=== PATIENT | male | born 1935 | race Caucasian/White ===

== ENCOUNTER 2018-10-15 11:27 | Inpatient (IN) ==
--- NOTE | 2018-10-15 11:37 | PDOC ---
Fall HPI - General Chief Complaint: Fall Stated Complaint: DYSPNEA, BACK PAIN AFTER FALL Date Seen by Provider: 10/15/18 Time Seen by Provider: 11:32 Source: POSITIVE: Patient, EMS Exam Limitations: POSITIVE: No limitations Nurse's Notes Reviewed & Considered: Yes EMS Report Reviewed & Considered: Verbal - History of Present Illness Initial Comments: This is a well-developed, well-nourished, very pleasant, 83-year-old male, complaining of back pain and shortness of breath with cough. Patient states he hadn't been feeling well for a couple of days and tripped over some close at home 2 days ago and fell landing on his back on a dresser. Now he has back pain in addition to shortness of breath and cough. He denies any headache, no sore throat, he does have a runny nose, denies any chest pain, he has a cough with shortness of breath, denies any nausea vomiting or diarrhea, no hematuria or dysuria, no rashes. EMS found his oxygenation to be 92% on room air but because of his shortness of breath he was placed on 3 L nasal cannula and his oxygen saturation improved to 97%. By the time he was here in the emergency department his oxygen saturation on 3 L had decreased to 92%. Patient states that once he is able to get up he is able to ambulate without difficulty. Assist that he has some pain in his back upon trying to arise from a sitting position that resolved fairly rapidly. Have you received a tetanus shot in the past 10 years?: Unknown Body Location Affected: REPORTS: Chest, Back Timing: REPORTS: Abrupt Duration: >24 hours Severity: Moderate Context of Fall: REPORTS: Tripped Location of Fall: REPORTS: Home Quality: REPORTS: "Pain" Associated Symptoms: REPORTS: Trouble Breathing Location of Injuries / Pain: REPORTS: Lower Back Any Prior Injuries Related to Current Complaint?: No - Patient Home Medications Home Medications: Home Medications Albuterol Sulfate [Proventil Hfa] 1 puff INH Q4-6H puff 03/14/15 Allopurinol 1 tab PO DAILY tab 03/14/15 Finasteride 1 mg PO DAILY tab 03/14/15 Tamsulosin HCl 1 cap PO DAILY cap 03/14/15 Tiotropium [place] [Spiriva] 1 puff INH DAILY inh 03/14/15 - Patient Allergies Allergies/Adverse Reactions: Allergies Allergy/AdvReac Type Severity Reaction Status Date / Time No Known Allergies Allergy Verified 10/15/18 11:33 ROS - Limitations ROS Limitations: No Limitations Constitution: REPORTS: Denies Symptoms Cardiovascular: REPORTS: Denies Cardiac Symptoms Respiratory: REPORTS: Cough Non Productive, Shortness Of Breath Neurological: REPORTS: Denies Neuro Symptoms Gastrointestinal: REPORTS: Denies GI Symptoms Endocrine: REPORTS: Denies Symptoms Musculoskeletal: REPORTS: Back Pain Genitourinary: REPORTS: Denies Symptoms Eyes: REPORTS: Denies Symptoms ENT: REPORTS: Nasal Drainage Skin: REPORTS: Denies Skin Symptoms Lympathic: REPORTS: Denies Lympathic Symptoms Immunologic: POSITIVE: Denies Symptoms Psychiatric: POSITIVE: Denies Psych Symptoms Fall Physical Exam - General Appearance General Appearance: POSITIVE: Alert, Cooperative, No Acute Distress, No Evidence of Trauma - HEENT HEENT: POSITIVE: Head Inspection Nml, Eyes Inspection Nml, Ears Inspection Nml, Nose Inspection Nml, Oral/Dental Inspect. Nml, Pharynx Inspect. Nml, PERRL, EOMI - Pupil Size Pupil Size: 5 mm: Bilateral - Neck Neck: POSITIVE: Non Tender, Painless ROM, Trachea Midline, Nexus Criteria Negative - Respiratory / CVS Respiratory / CVS: POSITIVE: Chest Non Tender, No Ecchymosis, Breath Sounds Normal, No Respiratory Distress, Heart Sounds Normal, Regular Rate/Rhythm Peripheral Pulses: Radial (R): 4+ - Abdomen Abdomen: Soft: (All Quadrants), Normal Bowel Sounds: (All Quadrants), Denies Tenderness: (All Quadrants), No Splenomegaly: (All Quadrants), No Hepatomegaly: (All Quadrants), No Guarding: (All Quadrants), No Rebound: (All Quadrants), No Palpable Pulse: (All Quadrants), No Palpabale Mass: (All Quadrants), No Distention: (All Quadrants), No Rigidity: (All Quadrants) - Neuro / Psych Neuro / Psych: POSITIVE: Oriented X3, Motor Normal, Sensation Normal, Mood Appropriate, Affect Appropriate Reflexes: Patellar (R): 4+, Patellar (L): 4+ - Skin Skin: POSITIVE: Intact, Warm, Dry - Back Back: POSITIVE: Normal Inspection, No CVA Tenderness, No Vertebral Tenderness, Muscle Spasm (Paraspinal muscles of the lower back predominantly on the left) - Extremities Extremity Assessment: Non-Tender: (ALL), Normal ROM: (ALL), No Edema: (ALL), Normal Inspection: (ALL), No Swelling: (ALL), Pelvis Stable: (ALL) Joint Exam: POSITIVE: Joints Normal, Normal ROM, Normal Gait, Normal Weight Bearing Fall Progress - Results Reviewed by me Xrays/CTs/US Reviewed by me: Yes Discussed with Radiologist: Yes Lab Results Reviewed by Me: Yes CBC and BMP: 10/15/18 12:08 10/15/18 12:08 Lab Results:: Laboratory Results 10/15/18 10/15/18 10/15/18 12:02 12:08 12:08 WBC 14.60 H RBC 4.03 L Hgb 11.9 L Hct 36.7 L MCV 91.1 H MCH 29.5 MCHC 32.4 L RDW Std Deviation 57.5 H RDW Coeff of [place] 17.9 H Plt Count 871 H MPV 10.0 Neutrophils % (Manual) 75 Band Neutrophils % 0 Lymphocytes % (Manual) 18 Monocytes % (Manual) 6 Eosinophils % (Manual) 1 Basophils % (Manual) 0 Metamyelocytes % Not Reportable Myelocytes % Not Reportable Promyelocytes % Not Reportable Blast Cells Not Reportable WBC Morphology Comment Normal morphology Plt Morphology Comment See comments RBC Morph Comment See comments ESR 95 H VBG pH 7.41 VBG pCO2 37 L VBG HCO3 24 VBG Base Excess -1 Sodium 141 Potassium 4.5 Chloride 106 Carbon Dioxide 28 Anion Gap 7 BUN 29 H Creatinine 1.2 BUN/Creatinine Ratio 24.16 H Glucose 110 Calculated Osmolality 298.0 H Lactic Acid Calcium 9.6 Magnesium 2.4 Total Bilirubin 0.3 AST 87 H ALT 82 H Alkaline Phosphatase 111 CK-MB (CK-2) Troponin I Handheld C-Reactive Protein 7.8 H NT-Pro-B Natriuret Pep 974 H Total Protein 7.6 Albumin 3.5 Globulin 4.0 Albumin/Globulin Ratio 0.80 L 10/15/18 10/15/18 10/15/18 12:08 12:08 12:08 WBC RBC Hgb Hct MCV MCH MCHC RDW Std Deviation RDW Coeff of [place] Plt Count MPV Neutrophils % (Manual) Band Neutrophils % Lymphocytes % (Manual) Monocytes % (Manual) Eosinophils % (Manual) Basophils % (Manual) Metamyelocytes % Myelocytes % Promyelocytes % Blast Cells WBC Morphology Comment Plt Morphology Comment RBC Morph Comment ESR VBG pH VBG pCO2 VBG HCO3 VBG Base Excess Sodium Potassium Chloride Carbon Dioxide Anion Gap BUN Creatinine BUN/Creatinine Ratio Glucose Calculated Osmolality Lactic Acid 1.1 Calcium Magnesium Total Bilirubin AST ALT Alkaline Phosphatase CK-MB (CK-2) 0.91 Troponin I Handheld 0.010 C-Reactive Protein NT-Pro-B Natriuret Pep Total Protein Albumin Globulin Albumin/Globulin Ratio EKG Interpreted/Reviewed By Me:: Yes (sinus rhythm with sinus arrhythmia, 88 bpm, no ST changes.) EKG Interpretation:: POSITIVE: Normal Sinus Rhythm, Normal Rate, Normal Intervals, Normal [place], Normal QRS, Normal ST/T - Patient's Progress Re-Examine Time:: 14:47 Status: POSITIVE: Improved MDM / ED Course: Patient was evaluated, an IV started, blood drawn and sent to the lab for studies, chest x-ray, lumbar spine x-ray, and chest CT were obtained. Findings: CBC shows white count of 14.6, anemia with hemoglobin 11.9, hematocrit of 36.7, platelets of 871, 0% bands. CK-MB is 0.91, troponin is 0.010. CRP is 7.8 and ESR is 95. BNP is 974. Blood gases show pH of 7.41, PCO2 37, bicarbonate 24, base excess of -1. CMP shows BUN of 29, AST of 87, ALT of 82. Magnesium is 2.4. Lactic acid is 1.1. Bilateral thigh respiratory panel is negative for all pathogens tested. Chest x-ray shows bilateral aspiration pneumonia more severe on the left side than the right. Lumbar spine x-ray shows no acute fractures or dislocation and there is chronic disc space narrowing at every level except L3-L4 he has a grade 1 spondylolisthesis at L4-L5 with a left L4 pars defect. Assessment: #1 Aspiration pneumonia with hypoxia requiring oxygen. #2 back pain with severe arthritic changes. Plan: Admission. IV Rocephin and clindamycin. Blood cultures are pending. - Consult Consult (If Yes, Name of Consulting MD & Time Called): Yes (Dr. Barclay, 1450 hrs.) Counseled: POSITIVE: Patient, Family, RE: Lab Results, RE: Radiology Results, RE: DX, RE: Need for F/U Patient Care Time - Estimated PCT Patient Care Time (In Minutes): 45 Vital Signs - Recent Vital Signs Vital Signs: Vital Signs (Last 8 hours) Temp Pulse Pulse Resp BP Pulse Ox 10/15/18 12:02 85 16 99 10/15/18 12:01 84 18 92 10/15/18 11:27 97.2 F 88 20 156/92 92 - VS Reviewed Vital Signs Reviewed: Yes Discharge Clinical Impression: Aspiration pneumonia Discharge Disposition: Admit to Inpatient Condition: Stable Follow Up With: Tanner Fuentes [Primary Care Provider] - Date Decision to Admit to Inpatient: 10/15/18 Time Decision to Admit to Inpatient: 14:50
[2018-10-15] MEDS ORDERED: Sodium Chloride 0.9% 1,000 ML PRIMARY IV ONE (11:41)
[2018-10-15] MEDS ORDERED: DEXAMETHASONE PF 10 MG/1 ML VIAL IVP ONE (11:41)
[2018-10-15] MEDS ORDERED: ONDANSETRON 4 MG/2 ML VIAL IVP ONE (11:41)
[2018-10-15] MEDS ORDERED: IPRATROPIUM/ALBUTEROL SULFATE 3 ML NEB NEB ONE (11:41)
[2018-10-15] MEDS ORDERED: KETOROLAC 15 MG/1 ML VIAL IVP ONE (11:41)
--- NOTE | 2018-10-15 12:00 | EKG ---
[address] [address] Measurements Intervals [place] Rate: 88 P: 46 [place]: 152 QRS: 82 QRSD: 104 T: 72 QT: 331 QTc: 376 Interpretive Statements SINUS RHYTHM WITH SINUS ARRHYTHMIA Compared to ECG 04/11/2015 14:51:35 T-wave abnormality no longer present Electronically Signed On 10-15-18 16:20:54 MDT by Alec Yao [email or web address]
[2018-10-15 12:10] LABS: Hematocrit [HCT] 36.7 % (42.0-52.0); Hemoglobin [HGB] 11.9 g/dL (14.0-18.0); MEAN CORPUSCULAR HEMOGLOBIN 29.5 PG (27-31); MEAN CORPUSCULAR HGB CONC 32.4 g/dL (33-37); MEAN CORPUSCULAR VOLUME 91.1 FL (80-90); RED BLOOD COUNT 4.03 10^6/uL (4.70-6.10)
[2018-10-15 12:22] LABS: VENOUS PH 7.41 (7.32-7.42)
[2018-10-15 12:23] LABS: BLOOD UREA NITROGEN 29 mg/dL (7-22); BUN/CREATININE RATIO 24.16 (6-20); SERUM ALBUMIN 3.5 g/dL (3.5-4.8)
[2018-10-15 12:30] LABS: WBC MORPHOLOGY COMMENT NORMAL MORPHOLOGY (NORM)
[2018-10-15 12:31] LABS: BAND NEUTROPHILS % 0 % (0-10); BASOPHILS % (MANUAL) 0 % (0-1); EOSINOPHILS % (MANUAL) 1 % (0-8); MONOCYTES % (MANUAL) 6 % (0-12); NEUTROPHILS % (MANUAL) 75 % (50-80); PLATELET MORPHOLOGY COMMENT SEE COMMENTS (NORM); RBC MORPHOLOGY COMMENT SEE COMMENTS (NORM)
[2018-10-15 13:18] LABS: Erythrocyte Sediment Rate 95 MM/HR (0-15)
--- NOTE | 2018-10-15 14:44 | DI ---
PA /LATERAL CHEST, 10/15/2018 11:41 AM : Clinical History: Cough. Shortness of breath. Previous Exam: 03/09/2015. Soft Tissues: No acute soft tissue abnormality. Bones: Normal. Heart: Normal heart. Lungs: The patient has had a previous left lung biopsy. There are bilateral lower lobe infiltrates in a pattern indicative of aspiration pneumonia. It is more pronounced on the left side than the right and this was also evident on the prior exam. There is centrilobular emphysema. Effusion(s): None. Mediastinum: Pulmonary arterial hypertension. Nodules: No pulmonary nodules. Readin. Bilateral lower lobe aspiration pneumonia. The left side is more involved than the right. 2. Centrilobular emphysema with pulmonary arterial hypertension.
[2018-10-15] MEDS ORDERED: cefTRIAXone Inj 2 GM in Sodium Chloride 0.9% 100 ML IV ONE (14:45)
[2018-10-15] MEDS ORDERED: Clindamycin 900mg (Premix) 900 MG/50 ML BAG IV ONE (14:45)
--- NOTE | 2018-10-15 14:49 | DI ---
LUMBAR SPINE SERIES, 10/15/2018 11:41 AM: Clinical History: Pain. Status post fall. Previous Exam: None at this facility. Views: 5 routine views. Vertebral Bodies: Normal height and size. No compression fractures. Disc Spaces: Severe disc space narrowing at every level except L3-4. Alignment: Grade 1 spondylolisthesis at L4-5 with a left L4 pars defect. Pedicles: Normal. Apophyseal Joints: Arthritic changes are present in the apophyseal joints bilaterally from L1-2 throu gh L5-S1 but most severely between L3-4 and L5-S1. SI Joints: Normal. Bone Density: Osteoporotic. Additional Findings: Bilateral lower lobe aspiration pneumonia is evident, more prominent on the left side than the right. Readin. No acute fracture or dislocation. 2. Chronic disc space narrowing at every level except L3-4. Grade 1 spondylolisthesis at L4-5 with a left L4 pars defect. 3. Severe arthritic changes in the apophyseal joints bilaterally especially between L3-4 and L5-S1. 4. Bilateral aspiration pneumonia, more severe on the left side than the right.
[2018-10-15] MEDS ORDERED: ONDANSETRON 4 MG/2 ML VIAL IVP PRN (15:53)
[2018-10-15] MEDS ORDERED: LIDOCAINE W/ SODIUM BICARB 0.5 ML SYR SUBD PRN (15:53)
--- NOTE | 2018-10-15 16:31 | DI ---
CT ANGIOGRAM OF THE CHEST, 10/15/2018 1:52 PM : Clinical History: Shortness of breath. Previous Exam: None at this facility. Technique: Scans from base of neck to lung bases with IV contrast. Bolus tracking protocol was used f or timing the injection. Non-MIPS and MIPS sagittal/coronal images generated. IV Contrast: 65 mL of Isovue 300. Base of Neck: Normal. The left thyroid lobe is either very small or surgically absent. Nodes: Normal axillary, supraclavicular, mediastinal, and hilar lymph nodes. Heart: Normal. No coronary artery calcifications. Aorta: Normal thoracic aorta. No aneurysm or dissection. Pulmonary Arteries: Normal. No pulmonary emboli or infarcts; mild pulmonary hypertension. Lungs: Bilateral lower lobe infiltrates with bronchiectasis. This indicates this is chronic aspiratio n pneumonia. Small blebs are scattered throughout both lungs indicating bullous emphysema. Mild incre ased Jana A and Jana B lines indicating mild chronic interstitial pulmonary fibrosis. Calcified p laques along the left costophrenic angle laterally probably related to the previous lung biopsy. Effusion(s): None. Nodules: There is a 3 mm noncalcified nodule in the anterior segment of the right upper lobe. 3 mm ca lcified nodule in the left upper lobe. Bony Structures: Normal visualized portions of ribs, sternum, scapulae, clavicles, and shoulders. Nor mal visualized portions of thoracic spine. Limited Upper Abdomen: Normal adrenal glands and limited views of the spleen spleen. Normal limited v iews of liver and pancreas. READIN. Normal CTA of the chest. There are no pulmonary emboli or pulmonary infarcts. There is mild pulmo nary adrenal hypertension. 2. Bilateral lower lobe aspiration pneumonia with extensive bronchiectasis. 3. Centrilobular emphysema with bullae and mild chronic interstitial pulmonary fibrosis. 4. Noncalcified 3 mm nodule in the anterior segment of the right upper lobe. Based on the 2017 Fleis chner Society guidelines for incidental nodules noted at CT scanning, a followup CT chest scan withou t IV contrast is(s) and 12 months.
--- NOTE | 2018-10-15 17:10 | HOSP.PSI ---
Pneumonia Severity Index - PSI Age: 83 Sex: Male Half-Way Resident: No History of Neoplastic Disease: No History of Liver Disease: No History of Congestive Heart Failure: No History of Cerebrovascular Disease: No History of Renal Disease: No Altered Mental Status: No Respiratory Rate Greater Than 30: No Systolic Blood Pressure Less Than 90 mmHg: No Temperature Less Than 95F or Greater Than 103.8F: No Pulse Greater Than 124 bpm: No pH Less Than 7.35: No BUN Greater Than 29: Yes Sodium Less Than 130: No Glucose Greater Than 249: No Hematocrit Less Than 30%: No Partial Pressure of Oxygen Less Than 60 mmHg: No Pleural Effusion on Xray: No (class IV pneumonia, admitted for antibiotics, oxygen, breathing therapies) Total PSI Score: 103 PSI Risk: Moderate Risk (91-131) = Consider Inpatient Admission
--- NOTE | 2018-10-15 17:16 | PDOC ---
HPI - History of Present Illness Date of Service: 10/15/18 Time of Service: 17:11 Chief Complaint: Cough and fall History of Present Illness: This very pleasant 83-year-old male with COPD/emphysema without oxygen at home, benign prostatic hypertrophy, who comes in accompanied by his 2 granddaughters with complaints of a fall and cough. The patient apparently normally coughs but his cough is been much more persistent. The patient tells me he felt that he probably had the flu earlier this month but his symptoms seemed to progress and he said thick, green yellowish sputum. His granddaughter tells me his fever was as high as 102 at home. He's been fighting symptoms for the past 8-9 days. Today, he was walking in his house and tried to step over a laundry basket but stepped in it and fell and hurt his lower back. His granddaughter called the ambulance and was brought in for evaluation. He was having low back pain which she does not normally complain of. A lumbar series showed some arthritic changes but was also noted that the patient had bilateral lower lobe pneumonia as he was hypoxic. He was placed on Rocephin and clindamycin with healing that he had an aspiration pneumonia. He states he had influenza vaccine this year and he has had Pneumovax as well. He seemed to get ill after his influenza vaccine per his history. He's never had pneumonia before. He is requiring 3 L of oxygen. He does not know if anything in the emergency room helped him feel any better. No interventions were tried prior to coming into the hospital today. He denies any nausea or vomiting, coughing or choking with eating. Past Medical History Medical History: 1. 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 2. Benign prostatic hypertrophy. 3. Gouty arthropathy Surgical History: No prior surgeries Pertinent Family History: He states that his father of old age. His mother of emphysema Past Social History: Remote history of smoking. Does not drink alcohol. Raised his 2 granddaughters. Has 1 son that described as healthy. Is . Tobacco Use: Former Smoker In the Past 12 Months, Have Used or Abuse Any of the Following Substance: None Alcohol Use: None Medication / Allergies Home Medications: Home Medications Medication Instructions Recorded Confirmed Type Albuterol Sulfate [Proventil Hfa] 1 puff INH Q4-6H puff 03/14/15 10/15/18 History Allopurinol 1 tab PO DAILY tab 03/14/15 10/15/18 History Finasteride 5 mg PO DAILY tab 03/14/15 10/15/18 History Tamsulosin HCl 1 cap PO DAILY cap 03/14/15 10/15/18 History Tiotropium [place] [Spiriva] 1 puff INH DAILY inh 03/14/15 10/15/18 History Allergies/Adverse Reactions: Allergies Allergy/AdvReac Type Severity Reaction Status Date / Time No Known Allergies Allergy Verified 10/15/18 11:33 Review of Systems - Review of Systems All Systems: Reviewed & No Additional Complaints Except as Stated (I did a 12 point review systems and it was negative other than that discussed below and in the history of present illness.) Exam - Vitals Vital Signs: Vital Signs Temperature 97.6 F Temperature Source Temporal Artery Scan Pulse Rate [Pulse Oximeter 82 Right] Pulse Rate 85 Respiratory Rate 20 Blood Pressure [Left Arm] 126/70 Pulse Ox 93 Oxygen Flow Rate 3 Oxygen Delivery Method Nasal Cannula Height 5 ft 11 in Weight 167 lb 8 oz - General General Appearance: No Acute Distress, Cooperative - Head Head Exam: Normal Inspection, Normocephalic, Atraumatic - Eye Eye Exam: POSITIVE: No Scleral Icterus - ENT ENT Exam: POSITIVE: Mucous Membranes Moist - Neck Neck Exam: Normal Inspection, No Tenderness, No Lymphadenopathy, No Thyromegaly, JVP is not Raised - Respiratory Respiratory Exam: POSITIVE: Breathing Non Labored, Decreased Breath Sounds (Bilateral bases), Coarse Breath Sounds - Cardiovascular Cardiovascular Exam: POSITIVE: RRR, No Murmur, No Clicks, No Gallops, No Rubs, No JVD - GI/Abdominal GI/Abdominal Exam: POSITIVE: Normal Bowel Sounds, Non Tender, Non Distended, Soft - Rectal Rectal Exam: POSITIVE: Deferred - External Exam: POSITIVE: Deferred Exam: POSITIVE: Deferred - Extremities Extremities Exam: POSITIVE: No Clubbing Present, No Edema Present, No Cyanosis Present - Back Back Exam: POSITIVE: No CVA Tenderness - Neurological Neurological Exam: POSITIVE: Alert, Oriented x 3, No Facial Droop, Speech Intact / Clear, Moves All Extremities Equally - Psychiatric Psychiatric Exam: POSITIVE: Normal Affect, Normal Mood Results - Labs CBC and BMP: 10/15/18 12:08 10/15/18 12:08 Additional Lab Results: Laboratory Results 10/15/18 10/15/18 10/15/18 12:02 12:08 12:08 WBC 14.60 H RBC 4.03 L Hgb 11.9 L Hct 36.7 L MCV 91.1 H MCH 29.5 MCHC 32.4 L RDW Std Deviation 57.5 H RDW Coeff of [place] 17.9 H Plt Count 871 H MPV 10.0 Neutrophils % (Manual) 75 Band Neutrophils % 0 Lymphocytes % (Manual) 18 Monocytes % (Manual) 6 Eosinophils % (Manual) 1 Basophils % (Manual) 0 Metamyelocytes % Not Reportable Myelocytes % Not Reportable Promyelocytes % Not Reportable Blast Cells Not Reportable WBC Morphology Comment Normal morphology Plt Morphology Comment See comments RBC Morph Comment See comments ESR 95 H VBG pH 7.41 VBG pCO2 37 L VBG HCO3 24 VBG Base Excess -1 Sodium 141 Potassium 4.5 Chloride 106 Carbon Dioxide 28 Anion Gap 7 BUN 29 H Creatinine 1.2 BUN/Creatinine Ratio 24.16 H Glucose 110 Calculated Osmolality 298.0 H Lactic Acid Calcium 9.6 Magnesium 2.4 Total Bilirubin 0.3 AST 87 H ALT 82 H Alkaline Phosphatase 111 CK-MB (CK-2) Troponin I Handheld C-Reactive Protein 7.8 H NT-Pro-B Natriuret Pep 974 H Total Protein 7.6 Albumin 3.5 Globulin 4.0 Albumin/Globulin Ratio 0.80 L 10/15/18 10/15/18 10/15/18 12:08 12:08 12:08 WBC RBC Hgb Hct MCV MCH MCHC RDW Std Deviation RDW Coeff of [place] Plt Count MPV Neutrophils % (Manual) Band Neutrophils % Lymphocytes % (Manual) Monocytes % (Manual) Eosinophils % (Manual) Basophils % (Manual) Metamyelocytes % Myelocytes % Promyelocytes % Blast Cells WBC Morphology Comment Plt Morphology Comment RBC Morph Comment ESR VBG pH VBG pCO2 VBG HCO3 VBG Base Excess Sodium Potassium Chloride Carbon Dioxide Anion Gap BUN Creatinine BUN/Creatinine Ratio Glucose Calculated Osmolality Lactic Acid 1.1 Calcium Magnesium Total Bilirubin AST ALT Alkaline Phosphatase CK-MB (CK-2) 0.91 Troponin I Handheld 0.010 C-Reactive Protein NT-Pro-B Natriuret Pep Total Protein Albumin Globulin Albumin/Globulin Ratio - EKG Data -: EKG Interpreted by Wa Rate: Normal EKG Shows Normal: Sinus Rhythm (Sinus arrhythmia) - Imaging Status: Image Reviewed by Me (Chest x-ray significant for bilateral pneumonia on my view. CT scan shows bilateral infiltrates in the lower lobes. L-spine series shows arthritic changes and degenerative changes in the lumbar spine) Assessment and Plan - Patient Problems (1) Aspiration pneumonia Current Visit: Yes Status: Acute Code(s): J69.0 - Pneumonitis due to inhalation of food and vomit Qualifiers: Aspiration pneumonia type: unspecified Laterality: bilateral Lung location: lower lobe of lung Qualified Code(s): J69.0 - Pneumonitis due to inhalation of food and vomit (2) Acute hypoxemic respiratory failure Current Visit: Yes Status: Acute Code(s): J96.01 - Acute respiratory failure with hypoxia (3) COPD (chronic obstructive pulmonary disease) Current Visit: Yes Status: Acute Code(s): J44.9 - Chronic obstructive pulmonary disease, unspecified Qualifiers: COPD type: emphysema Emphysema type: centrilobular Qualified Code(s): J43.2 - Centrilobular emphysema (4) Low back pain Current Visit: Yes Status: Acute Code(s): M54.5 - Low back pain Qualifiers: Chronicity: acute Back pain laterality: bilateral Sciatica presence: without sciatica Qualified Code(s): M54.5 - Low back pain (5) Benign prostatic hyperplasia Current Visit: Yes Status: Acute Code(s): N40.0 - Benign prostatic hyperplasia without lower urinary tract symptoms Qualifiers: Lower urinary tract symptom presence: unspecified whether lower urinary tract symptoms present Qualified Code(s): N40.0 - Benign prostatic hyperplasia without lower urinary tract symptoms (6) Gouty arthropathy Current Visit: Yes Status: Acute Code(s): M10.9 - Gout, unspecified (7) Thrombocytosis Current Visit: Yes Status: Acute Code(s): 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 Antibiotics will be given IV Rocephin and clindamycin for possible aspiration pneumonia I will write for some breathing therapies including nebulized therapies if necessary. We'll predominantly do this with albuterol. He is on Spiriva and I will continue that. Oxygen as necessary to keep saturations greater than 91%. Respiratory therapy to evaluate. I have written for Vapotherm if necessary Vitamin C by mouth. We'll check a urinary antigen for strep pneumoniae. I will also get a pneumonia sputum profile vaccine status reviewed has had both vaccines and has had Pneumovax before PSI score is suggestive of a class for pneumonia CURB-65 is 2 points, 6.8% 30 day mortality, admitted as inpatient Does not smoke so smoking cessation is not necessary Repeat labs in a.m. CODE STATUS discussed, DO NOT RESUSCITATE Blood cultures are pending. Continue home medications for BPH and gouty arthropathy prevention Try heating packs for the back. Avoid narcotics if at all possible course of antibiotics will be 5 to 7 days, and will switch to oral antibiotics within 48 hours if clinical picuture stabilizes. I'm going to hold off on any steroids at this time Plan above discussed with patient and patient agreed
[2018-10-15] MEDS: ALBUTEROL SULFATE 2.5 MG/3 ML NEB PRN (19:57)
[2018-10-15] MEDS: TAMSULOSIN 0.4 MG CAPSULE PO SCH (21:00)
[2018-10-16] MEDS: ALBUTEROL SULFATE 2.5 MG/3 ML NEB PRN ×4 (00:59→15:03)
[2018-10-16 05:38] LABS: Hemoglobin [HGB] 10.5 g/dL (14.0-18.0); MEAN CORPUSCULAR HEMOGLOBIN 29.2 PG (27-31); MEAN CORPUSCULAR HGB CONC 31.8 g/dL (33-37); MEAN CORPUSCULAR VOLUME 91.9 FL (80-90); MEAN PLATELET VOLUME 10.3 FL (7.4-12.2); RED BLOOD COUNT 3.59 10^6/uL (4.70-6.10)
[2018-10-16 05:58] LABS: BLOOD UREA NITROGEN 33 mg/dL (7-22)
[2018-10-16 06:21] LABS: BAND NEUTROPHILS % 1 % (0-10); BASOPHILS % (MANUAL) 0 % (0-1); EOSINOPHILS % (MANUAL) 0 % (0-8); METAMYELOCYTES % 0 %; MONOCYTES % (MANUAL) 7 % (0-12); MYELOCYTES % 0 %; NEUTROPHILS % (MANUAL) 77 % (50-80); PLATELET MORPHOLOGY COMMENT NORMAL MORPHOLOGY (NORM); PROMYELOCYTES % 0 %; RBC MORPHOLOGY COMMENT NORMAL MORPHOLOGY (NORM); WBC MORPHOLOGY COMMENT NORMAL MORPHOLOGY (NORM)
[2018-10-16] MEDS: TIOTROPIUM BROMIDE 18 MCG CAPSULE INH SCH (06:50)
[2018-10-16] MEDS: ASCORBIC ACID Chewable 500 MG TABLET PO SCH (09:37)
[2018-10-16] MEDS: ENOXAPARIN SODIUM 30 MG/0.3 ML SYRINGE SUBCUT SCH (09:37)
[2018-10-16] MEDS: ALLOPURINOL 300 MG TABLET PO SCH (09:37)
[2018-10-16] MEDS ORDERED: FUROSEMIDE 10 MG/1 ML - 2 ML VIAL IVP ONE (09:39)
[2018-10-16] MEDS ORDERED: GUAIFENESIN 600 MG TABLET PO ONE (10:58)
[2018-10-16] MEDS ORDERED: KETOROLAC 15 MG/1 ML VIAL IVP ONE (10:58)
[2018-10-16] MEDS: Clindamycin 900mg (Premix) 900 MG/50 ML BAG IV SCH ×2 (15:08→23:16)
[2018-10-16] MEDS: cefTRIAXone Inj 2 GM in Sodium Chloride 0.9% 100 ML IV SCH (15:08)
--- NOTE | 2018-10-16 15:55 | DI ---
MODIFIED ESOPHAGRAM, 10/16/2018 8:00 AM : Clinical History: Aspiration pneumonia. Previous Exam: None at this facility. Time Out: A "time out" session was performed to verify the patient's name and date of prior to performing this procedure. Technique: Examination is performed in conjunction with Occupational Therapy to evaluate the patient' s swallowing function. Different texture grades of barium impregnated substances were offered to the patient, ranging from thin liquids to thick liquids to solids. Please see the occupational therapist' s report for more specific details. Deglutition: Deglutition is normal and the esophagus strips well in the upright position. With the pa tient supine, there is almost no motility in the esophagus. Even with the patient attempting to swall ow, the barium remains in the esophagus. Aspiration: No aspiration noted while swallowing. Pooling: No pooling of material in the pyriform sinuses. Diverticulum: There is no Zenker's diverticulum. Esophagus: Spot films of the esophagus showed tertiary contractions without evidence of esophagitis. A small hiatal hernia is present. Reflux: No reflux is demonstrated either spontaneously or with the water siphon test. READIN. The modified esophagram shows no evidence of aspiration or reflux. Using different textures of ba rium impregnated materials elicited no aspiration. However, with the patient supine, there was almost no esophageal motility even when the patient attempted to swallow. 2. Bilateral lower lobe infiltrates are present, more severe on the left side than the right, indica tive of aspiration pneumonia.
[2018-10-16 17:08] LABS: BLOOD UREA NITROGEN 35 mg/dL (7-22)
--- NOTE | 2018-10-16 18:01 | PDOC(PROG) ---
Date of Service: 10/16/18 Time of Service: 17:57 Interval History: patient seen, evaluated earlier today still coughing and has back pain no nausea or vomiting no chest pain Objective : Data - Labs CBC and BMP: 10/16/18 05:15 10/16/18 16:54 Objective : Exam - General General Appearance: No Acute Distress, Cooperative Additional General Exam Details: Vital Signs - Last Taken Temperature 97.6 F 10/16/18 16:26 Pulse Rate 85 10/16/18 16:26 Respiratory Rate 20 10/16/18 16:26 Blood Pressure 112/48 10/16/18 16:26 Pulse Ox 92 10/16/18 16:26 - Eye Eye Exam: No Scleral Icterus - ENT ENT Exam: Mucous Membranes Moist - Neck Neck Exam: JVP is not Raised - Respiratory Respiratory Exam: Breathing Non Labored, Decreased Breath Sounds, Coarse Breath Sounds - Cardiovascular Cardiovascular Exam: RRR, No Murmur, No Clicks, No Gallops, No Rubs, No JVD - GI/Abdominal GI/Abdominal Exam: Normal Bowel Sounds, Non Tender, Non Distended, Soft - Extremities Extremities Exam: No Clubbing Present, No Edema Present, No Cyanosis Present - Neurological Neurological Exam: Alert, Oriented x 3, No Facial Droop, Speech Intact / Clear, Moves All Extremities Equally Assessment and Plan - Patient Problems (1) Aspiration pneumonia Current Visit: Yes Status: Acute Code(s): J69.0 - Pneumonitis due to inhalation of food and vomit Qualifiers: Aspiration pneumonia type: unspecified Laterality: bilateral Lung location: lower lobe of lung Qualified Code(s): J69.0 - Pneumonitis due to inhalation of food and vomit (2) Acute hypoxemic respiratory failure Current Visit: Yes Status: Acute Code(s): J96.01 - Acute respiratory failure with hypoxia (3) COPD (chronic obstructive pulmonary disease) Current Visit: Yes Status: Acute Code(s): J44.9 - Chronic obstructive pulmonary disease, unspecified Qualifiers: COPD type: emphysema Emphysema type: centrilobular Qualified Code(s): J43.2 - Centrilobular emphysema (4) Low back pain Current Visit: Yes Status: Acute Code(s): M54.5 - Low back pain Qualifiers: Chronicity: acute Back pain laterality: bilateral Sciatica presence: without sciatica Qualified Code(s): M54.5 - Low back pain (5) Benign prostatic hyperplasia Current Visit: Yes Status: Acute Code(s): N40.0 - Benign prostatic hyperplasia without lower urinary tract symptoms Qualifiers: Lower urinary tract symptom presence: unspecified whether lower urinary tract symptoms present Qualified Code(s): N40.0 - Benign prostatic hyperplasia without lower urinary tract symptoms (6) Gouty arthropathy Current Visit: Yes Status: Acute Code(s): M10.9 - Gout, unspecified (7) Thrombocytosis Current Visit: Yes Status: Acute Code(s): 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 ECHO done today, pending, suspect right heart failure, possible left sided ejection fraction
[2018-10-16] MEDS ORDERED: POTASSIUM CHLORIDE 20 MEQ TAB PO ONE (18:03)
[2018-10-16] MEDS: FINASTERIDE 5 MG TABLET PO SCH (20:28)
[2018-10-16] MEDS: GUAIFENESIN 600 MG TABLET PO SCH (20:28)
[2018-10-16] MEDS: TAMSULOSIN 0.4 MG CAPSULE PO SCH (20:28)
[2018-10-17 05:18] LABS: Hematocrit [HCT] 30.5 % (42.0-52.0); Hemoglobin [HGB] 9.7 g/dL (14.0-18.0); MEAN CORPUSCULAR HEMOGLOBIN 29.8 PG (27-31); MEAN CORPUSCULAR HGB CONC 31.8 g/dL (33-37); MEAN CORPUSCULAR VOLUME 93.8 FL (80-90); MEAN PLATELET VOLUME 10.3 FL (7.4-12.2); RED BLOOD COUNT 3.25 10^6/uL (4.70-6.10)
[2018-10-17 05:30] LABS: BLOOD UREA NITROGEN 32 mg/dL (7-22); BUN/CREATININE RATIO 29.09 (6-20); SERUM ALBUMIN 2.6 g/dL (3.5-4.8)
[2018-10-17 06:01] LABS: BAND NEUTROPHILS % 0 % (0-10); BASOPHILS % (MANUAL) 0 % (0-1); EOSINOPHILS % (MANUAL) 2 % (0-8); METAMYELOCYTES % 0 %; MONOCYTES % (MANUAL) 3 % (0-12); MYELOCYTES % 0 %; NEUTROPHILS % (MANUAL) 79 % (50-80); PLATELET MORPHOLOGY COMMENT NORMAL MORPHOLOGY (NORM); PROMYELOCYTES % 0 %; RBC MORPHOLOGY COMMENT NORMAL MORPHOLOGY (NORM); WBC MORPHOLOGY COMMENT NORMAL MORPHOLOGY (NORM)
[2018-10-17] MEDS: ALBUTEROL SULFATE 2.5 MG/3 ML NEB PRN ×3 (06:42→15:14)
[2018-10-17] MEDS: TIOTROPIUM BROMIDE 18 MCG CAPSULE INH SCH (06:46)
[2018-10-17] MEDS: Clindamycin 900mg (Premix) 900 MG/50 ML BAG IV SCH (07:01)
[2018-10-17] MEDS: ASCORBIC ACID Chewable 500 MG TABLET PO SCH (08:49)
[2018-10-17] MEDS: GUAIFENESIN 600 MG TABLET PO SCH ×2 (08:49→20:09)
[2018-10-17] MEDS: ALLOPURINOL 300 MG TABLET PO SCH (08:49)
[2018-10-17] MEDS: ENOXAPARIN SODIUM 30 MG/0.3 ML SYRINGE SUBCUT SCH (08:50)
[2018-10-17] MEDS ORDERED: BENZONATATE 100 MG CAPSULE PO PRN (10:45)
--- NOTE | 2018-10-17 11:15 | OT.PROG ---
Progress Note Progress Note: S: pt stated that he was doing okay today and agreed to therapy. O: pt completed bed mobility from supine to EOB with MIN A, functional transfer to w/c CGA for safety. pt completed UBE x 7 min with one rest break, UE yellow RTB exercises of biceps, triceps, IROT/EROT x 10 each, LE red RTB exercises of knee flexion, LAQ, clams x10 each, STS x10, nustep x5 min. pt transferred from w/c to EOB with CGA for safety. pt was educated on results of his swallow study and the changes he would need to make to his diet and how he eats. pt was left with hand out in room. A: pts O2 stats were monitored during tx session. pts O2 stats stayed between 91- 96 during exercises. P: continue POC
--- NOTE | 2018-10-17 11:58 | PDOC(PROG) ---
Interval History: Doing well improved from respiratory standpoint still has some cough and has lower back pain which is chronic Objective : Data - Labs CBC and BMP: 10/17/18 04:20 10/17/18 04:20 Objective : Exam - General General Appearance: No Acute Distress, Cooperative - Respiratory Respiratory Exam: Clear to Auscultation - Bilaterally, Breathing Non Labored, Normal To Percussion, Normal to Percussion and Palpation - Cardiovascular Cardiovascular Exam: RRR, No Murmur, No Clicks, No Gallops, No Rubs, PMI Non- Displaced - GI/Abdominal GI/Abdominal Exam: Normal Bowel Sounds, Non Tender, Non Distended, Soft, No Masses, No Hepatomegaly, No Splenomegaly, No Organomegaly Assessment and Plan - Patient Problems (1) Aspiration pneumonia Current Visit: Yes Status: Acute Comment: Continue antibiotics I will change Clinda to Flagyl less chance of C. difficile and is improving any oxygen at the [facility] [employer] for his cough Code(s): J69.0 - Pneumonitis due to inhalation of food and vomit Qualifiers: Aspiration pneumonia type: unspecified Laterality: bilateral Lung loc ation: lower lobe of lung Qualified Code(s): J69.0 - Pneumonitis due to inhalation of food and vomit (2) Acute hypoxemic respiratory failure Current Visit: Yes Status: Acute Code(s): J96.01 - Acute respiratory failure with hypoxia (3) COPD (chronic obstructive pulmonary disease) Current Visit: Yes Status: Acute Code(s): J44.9 - Chronic obstructive pulmonary disease, unspecified Qualifiers: COPD type: emphysema Emphysema type: centrilobular Qualified Code(s): J43.2 - Centrilobular emphysema (4) Low back pain Current Visit: Yes Status: Acute Comment: Add Percocet 12/04/2024 Code(s): M54.5 - Low back pain Qualifiers: Chronicity: acute Back pain laterality: bilateral Sciatica presence: without sciatica Qualified Code(s): M54.5 - Low back pain (5) Benign prostatic hyperplasia Current Visit: Yes Status: Acute Code(s): N40.0 - Benign prostatic hyperplasia without lower urinary tract symptoms Qualifiers: Lower urinary tract symptom presence: unspecified whether lower urinary tract symptoms present Qualified Code(s): N40.0 - Benign prostatic hyperplasia without lower urinary tract symptoms (6) Gouty arthropathy Current Visit: Yes Status: Acute Code(s): M10.9 - Gout, unspecified (7) Thrombocytosis Current Visit: Yes Status: Acute Code(s): D47.3 - Essential (hemorrhagic) thrombocythemia
[2018-10-17] MEDS: oxyCODONE-ACETAMINOPHEN 5-325 TAB PO PRN ×3 (12:26→20:09)
[2018-10-17] MEDS: metroNIDAZOLE 500mg (Premix) 500 MG/100 ML BAG IV SCH ×2 (14:02→20:08)
[2018-10-17] MEDS: cefTRIAXone Inj 2 GM in Sodium Chloride 0.9% 100 ML IV SCH (15:53)
[2018-10-17] MEDS: FINASTERIDE 5 MG TABLET PO SCH (20:09)
[2018-10-17] MEDS: TAMSULOSIN 0.4 MG CAPSULE PO SCH (20:09)
[2018-10-18] MEDS: metroNIDAZOLE 500mg (Premix) 500 MG/100 ML BAG IV SCH ×3 (04:19→20:22)
[2018-10-18] MEDS: oxyCODONE-ACETAMINOPHEN 5-325 TAB PO PRN ×3 (04:25→14:17)
[2018-10-18 04:44] LABS: MEAN CORPUSCULAR HEMOGLOBIN 29.3 PG (27-31); MEAN CORPUSCULAR HGB CONC 31.3 g/dL (33-37); MEAN CORPUSCULAR VOLUME 93.8 FL (80-90); RED BLOOD COUNT 3.41 10^6/uL (4.70-6.10)
[2018-10-18 04:51] LABS: BLOOD UREA NITROGEN 30 mg/dL (7-22); BUN/CREATININE RATIO 23.07 (6-20); SERUM ALBUMIN 2.7 g/dL (3.5-4.8)
[2018-10-18 05:36] LABS: PLATELET MORPHOLOGY COMMENT NORMAL MORPHOLOGY (NORM); RBC MORPHOLOGY COMMENT NORMAL MORPHOLOGY (NORM); WBC MORPHOLOGY COMMENT NORMAL MORPHOLOGY (NORM)
[2018-10-18 05:37] LABS: BAND NEUTROPHILS % 0 % (0-10); BASOPHILS % (MANUAL) 1 % (0-1); EOSINOPHILS % (MANUAL) 1 % (0-8); METAMYELOCYTES % 0 %; MONOCYTES % (MANUAL) 2 % (0-12); MYELOCYTES % 0 %; NEUTROPHILS % (MANUAL) 80 % (50-80); PROMYELOCYTES % 0 %
[2018-10-18] MEDS: TIOTROPIUM BROMIDE 18 MCG CAPSULE INH SCH (06:57)
[2018-10-18] MEDS: ALBUTEROL SULFATE 2.5 MG/3 ML NEB PRN ×2 (07:00→21:32)
[2018-10-18] MEDS: GUAIFENESIN 600 MG TABLET PO SCH ×2 (08:53→20:22)
[2018-10-18] MEDS: ENOXAPARIN SODIUM 30 MG/0.3 ML SYRINGE SUBCUT SCH (08:53)
[2018-10-18] MEDS: ALLOPURINOL 300 MG TABLET PO SCH (08:53)
[2018-10-18] MEDS: ASCORBIC ACID Chewable 500 MG TABLET PO SCH (08:53)
--- NOTE | 2018-10-18 10:42 | PDOC(PROG) ---
Interval History: Doing well much better today still deciding to 84% when ambulating still some elevated white count of 12,000 but improved no left shift patient continues to do physical therapy Objective : Data - Labs CBC and BMP: 10/18/18 04:20 10/18/18 04:20 Objective : Exam - General General Appearance: Cooperative - Respiratory Respiratory Exam: Clear to Auscultation - Bilaterally, Breathing Non Labored, Normal To Percussion, Normal to Percussion and Palpation - Cardiovascular Cardiovascular Exam: RRR, No Murmur, No Clicks, No Gallops, No Rubs, PMI Non- Displaced - GI/Abdominal GI/Abdominal Exam: Normal Bowel Sounds, Non Tender, Non Distended, Soft, No Masses, No Hepatomegaly, No Splenomegaly, No Organomegaly Assessment and Plan - Patient Problems (1) Aspiration pneumonia Current Visit: Yes Status: Acute Comment: Continue Rocephin and Flagyl swallow study was negative Code(s): J69.0 - Pneumonitis due to inhalation of food and vomit Qualifiers: Aspiration pneumonia type: unspecified Laterality: bilateral Lung location: lower lobe of lung Qualified Code(s): J69.0 - Pneumonitis due to inhalation of food and vomit (2) Acute hypoxemic respiratory failure Current Visit: Yes Status: Acute Comment: Candidate to pneumonia Code(s): J96.01 - Acute respiratory failure with hypoxia (3) COPD (chronic obstructive pulmonary disease) Current Visit: Yes Status: Acute Comment: Continue antibiotics this could be a combination with his pneumonia Code(s): J44.9 - Chronic obstructive pulmonary disease, unspecified Qualifiers: COPD type: emphysema Emphysema type: centrilobular Qualified Code(s): J43.2 - Centrilobular emphysema (4) Low back pain Current Visit: Yes Status: Acute Comment: Much better with Percocet 12/04/2024 Code(s): M54.5 - Low back pain Qualifiers: Chronicity: acute Back pain laterality: bilateral Sciatica presence: without sciatica Qualified Code(s): M54.5 - Low back pain (5) Gouty arthropathy Current Visit: Yes Status: Acute Code(s): M10.9 - Gout, unspecified (6) Thrombocytosis Current Visit: Yes Status: Acute Code(s): D47.3 - Essential (hemorrhagic) thrombocythemia
[2018-10-18] MEDS: cefTRIAXone Inj 2 GM in Sodium Chloride 0.9% 100 ML IV SCH (16:10)
[2018-10-18] MEDS: TAMSULOSIN 0.4 MG CAPSULE PO SCH (20:22)
[2018-10-18] MEDS: FINASTERIDE 5 MG TABLET PO SCH (20:22)
[2018-10-19] MEDS: metroNIDAZOLE 500mg (Premix) 500 MG/100 ML BAG IV SCH ×2 (04:07→12:22)
[2018-10-19 04:49] LABS: Hematocrit [HCT] 31.5 % (42.0-52.0); Hemoglobin [HGB] 9.9 g/dL (14.0-18.0); MEAN CORPUSCULAR HEMOGLOBIN 29.4 PG (27-31); MEAN CORPUSCULAR HGB CONC 31.4 g/dL (33-37); MEAN CORPUSCULAR VOLUME 93.5 FL (80-90); MEAN PLATELET VOLUME 10.2 FL (7.4-12.2); RED BLOOD COUNT 3.37 10^6/uL (4.70-6.10)
[2018-10-19 04:51] LABS: BLOOD UREA NITROGEN 27 mg/dL (7-22); BUN/CREATININE RATIO 24.54 (6-20)
[2018-10-19] MEDS: oxyCODONE-ACETAMINOPHEN 5-325 TAB PO PRN ×2 (05:03→20:12)
[2018-10-19 05:05] LABS: BAND NEUTROPHILS % 1 % (0-10); BASOPHILS % (MANUAL) 0 % (0-1); EOSINOPHILS % (MANUAL) 0 % (0-8); MONOCYTES % (MANUAL) 5 % (0-12); NEUTROPHILS % (MANUAL) 83 % (50-80); PLATELET MORPHOLOGY COMMENT SEE COMMENTS (NORM); RBC MORPHOLOGY COMMENT NORMAL MORPHOLOGY (NORM); WBC MORPHOLOGY COMMENT NORMAL MORPHOLOGY (NORM)
[2018-10-19] MEDS: ALBUTEROL SULFATE 2.5 MG/3 ML NEB PRN ×2 (06:45→19:46)
[2018-10-19] MEDS: TIOTROPIUM BROMIDE 18 MCG CAPSULE INH SCH (06:49)
[2018-10-19] MEDS: ENOXAPARIN SODIUM 30 MG/0.3 ML SYRINGE SUBCUT SCH (08:51)
[2018-10-19] MEDS: GUAIFENESIN 600 MG TABLET PO SCH ×2 (08:51→20:12)
[2018-10-19] MEDS: ASCORBIC ACID Chewable 500 MG TABLET PO SCH (08:51)
[2018-10-19] MEDS: ALLOPURINOL 300 MG TABLET PO SCH (08:52)
--- NOTE | 2018-10-19 09:22 | PDOC(PROG) ---
Interval History: Patient states he is feeling better today objectively he seems still pretty weak. He says his shortness of breath is improved as well as his cough Objective : Data - Labs CBC and BMP: 10/19/18 04:09 10/19/18 04:09 Objective : Exam - Respiratory Respiratory Exam: Decreased Breath Sounds - Cardiovascular Cardiovascular Exam: RRR, No Murmur, No Clicks, No Gallops, No Rubs, PMI Non- Displaced - GI/Abdominal GI/Abdominal Exam: Normal Bowel Sounds, Non Tender, Non Distended, Soft, No Masses, No Hepatomegaly, No Splenomegaly, No Organomegaly - Extremities Extremities Exam: No Clubbing Present, No Edema Present, No Cyanosis Present Assessment and Plan - Patient Problems (1) Aspiration pneumonia Current Visit: Yes Status: Acute Comment: Continue IV antibiotics patient's white count is going up as well as his neutrophils I will repeat the CAT scan to look for any changes or worsening of her his pneumonia Code(s): J69.0 - Pneumonitis due to inhalation of food and vomit Qualifiers: Aspiration pneumonia type: unspecified Laterality: bilateral Lung l ocation: lower lobe of lung Qualified Code(s): J69.0 - Pneumonitis due to inhalation of food and vomit (2) Acute hypoxemic respiratory failure Current Visit: Yes Status: Acute Comment: Continue oxygen Code(s): J96.01 - Acute respiratory failure with hypoxia (3) COPD (chronic obstructive pulmonary disease) Current Visit: Yes Status: Acute Code(s): J44.9 - Chronic obstructive pulmonary disease, unspecified Qualifiers: COPD type: emphysema Emphysema type: centrilobular Qualified Code(s): J43.2 - Centrilobular emphysema (4) Low back pain Current Visit: Yes Status: Acute Code(s): M54.5 - Low back pain Qualifiers: Chronicity: acute Back pain laterality: bilateral Sciatica presence: without sciatica Qualified Code(s): M54.5 - Low back pain (5) Gouty arthropathy Current Visit: Yes Status: Acute Code(s): M10.9 - Gout, unspecified (6) Thrombocytosis Current Visit: Yes Status: Acute Code(s): D47.3 - Essential (hemorrhagic) thrombocythemia
--- NOTE | 2018-10-19 12:39 | DI ---
CT ANGIOGRAM OF THE CHEST, 10/19/2018 9:23 AM : Clinical History: Shortness of breath. Previous Exam: 10/15/2018. Technique: Scans from base of neck to lung bases with IV contrast. Bolus tracking protocol was used f or timing the injection. Non-MIPS and MIPS sagittal/coronal images generated. IV Contrast: 65 mL of Isovue 370. Base of Neck: Normal. Nodes: Normal axillary, supraclavicular, mediastinal, and hilar lymph nodes. Heart: Normal. Calcifications are present in the left mainstem, LAD, right coronary artery the PDA, a nd in the proximal portion of the left circumflex artery. Aorta: Normal thoracic aorta. No aneurysm or dissection. Pulmonary Arteries: Since the previous exam, the patient has developed pulmonary emboli bilaterally t o upper lobe branches that previously were free of clot. Lungs: Bilateral lower lobe pneumonia have become more consolidated. Flow is still visualized to thes e segments. Effusion(s): None. READIN. Interval development of blood clots to the branches of the right and left upper lobes. These vess els previously were free of clots. 2. Progressive consolidation of bilateral lower lobe pneumonia. There is compensatory hyperinflation of both upper lobes secondary to the lower lobe atelectasis and pneumonia. 3. Bullous emphysema.
--- NOTE | 2018-10-19 13:16 | OT.PROG ---
Progress Note Progress Note: S: pt did report back pain today. He thought he was going to get home over the weekend. O: pt was seen in his room and completed postural transition from supine to EOB Ind. He then completed functional transfer entire way to therapy wit use of no assistive device. He completed 8 min on NU step before transferring to mat table completing x10 sit to stands 0# and x10 sit to stands 4#. He completed functional transfer approx 35 ft to table where he received moist heat to LB. A: pt's o2 was monitored entire time and needed to be kicked up to 4 liters during activity to remain in lower 90's. He struggled with this today. P: continue per POC.
--- NOTE | 2018-10-19 14:54 | OTI REPORT ---
Thank you for the referral of Drew Patel. He was seen on 10/16/18 for an occupational therapy inpatient evaluation secondary to falling at home. SUBJECTIVE: The patient is an 83-year-old male who is being seen today secondary to falling at his home. The patient reports that he lives with his 15-year-old grandson and 19-year-old granddaughter who live with him. He said they had put a laundry basket in the middle of the hallway and he came out of his room and didn't realize it was there. He states he slipped in the laundry basket and fell backwards. The patient is reporting a lot of left low back pain. Per report, the patient has bilateral pneumonia and will be having a modified barium swallow study later today. PAST MEDICAL HISTORY: Past medical history can be found in the patient's medical record. OBJECTIVE FINDINGS: Range of motion: The patient has within functional limits for upper extremity range of motion. Strength: Strength in bilateral upper extremities is 4/5 for shoulder flexion, 3+/5 for abduction, elbow flexion/extension is 4/5, and wrist flexion/extension is 4/5. Transfers: The patient requires contact guard assist for sit to stand transfer. Activities of daily living: The patient requires stand by assist to stand at sink and complete hygiene activities. The patient had a lot of difficulty trying to dress lower extremities today. He was able to get pants to ankle height and requires moderate assistance with lower extremity dressing. The patient would benefit from adaptive equipment. Upper extremity activities such as eating and bathing are within normal limits. Swallow: Because of the modified barium swallow study this afternoon, OT did a brief evaluation of his swallow strength. He has approximately 75% laryngeal elevation. He has a "wet" voice. When taking medication with nursing today with a little bit of water, he did cough and choke quite frequently. ASSESSMENT: The patient would benefit from skilled occupational therapy to address education of adaptive devices to help with his lower extremity dressing tasks, to improve upper extremity strength, and to educate on in-home safety. This afternoon the patient is to participate in a modified barium swallow study. The therapist did observe the patient swallow and he did cough quite a bit after taking his medications with water. He may be aspirating. Short-Term Goals: To be met by discharge from inpatient: Patient will be able to dress lower extremities with modified independence with use of adaptive devices. Patient will increase upper extremity strength to 4+/5 to improve his overall ADLs and functional transfer abilities. Patient will be able to complete all functional transfers independently. Patient is to participate in modified barium swallow study this afternoon. Long-Term Goals: To be met following discharge from inpatient: Patient will return home, demonstrating safety and independence with all ADLs and functional transfers. TREATMENT PLAN: Patient will be seen B.I.D during the week and one time per day over the weekend as an inpatient to address the above goals and objectives. INITIAL TREATMENT: Treatment today consisted of the initial evaluation followed by the patient attempting to dress lower extremities; however, the patient had too much pain. He was able to stand at sink and complete hygiene activities x5 minutes with contact guard assist. He does have slowed movement. [facility]
[2018-10-19] MEDS: Apixaban 5 MG TABLET PO SCH ×2 (15:32→20:12)
--- NOTE | 2018-10-19 15:39 | PTI REPORT ---
Thank you for the referral of Drew Patel. He was seen on 10/16/18 for an inpatient evaluation secondary to back pain and weakness. SUBJECTIVE: The patient is an 83-year-old male who was brought into the hospital after a fall at home. The patient states that when he was leaving his room there was a laundry basket placed where it wasn't usually at in his home and he had stepped into it and fell backwards. He complains of left sided back pain that is worse with movement since the incident. The patient states he has also been feeling weak over the last month due to a recent bout of the flu and also complains of a cough. The patient does have a diagnosis of COPD and emphysema but states he does not use oxygen at home. The patient states that he lives here in [place] in a split level home with multiple stairs. He lives with his two granddaughters. He states prior to his recent hospitalization he was independent with his ADLs and did not use any type of assistive device to get around and denies any other falls in the last three months. PAST MEDICAL HISTORY: Past medical history can be found in the patient's medical record. OBJECTIVE FINDINGS: General observations: The patient was alert and oriented to setting upon PT arrival. The patient was on three liters of oxygen. The patient is NPO at this time due to a modified barium swallow study that he is to have in approximately an hour and a half. The patient did agree to participate with some physical therapy. Bed mobility: The patient was able to independently go from supine to seated edge of bed but did require additional time secondary to his back pain. The patient complained of pain during his transfer. He states once he gets into position and is able to sit there for a moment, his back pain does subside some. The patient demonstrated good seated edge of bed balance. The patient was able to transfer back into bed with left sided back pain during movement. The patient denies any pain radiating into his left lower extremity. Strength: The patient demonstrates 4/5 left hip strength, 4+/5 right hip strength, and 5/5 bilateral knee and ankle strength with manual muscle test performed in a seated position. Transfers: The patient is able to perform a sit to stand transfer. He does complain of left sided back pain with transfer. ASSESSMENT: The patient has fair rehab potential secondary to his age and past medical history. Problem List: Left sided low back pain Weakness Short-Term Goals: To be met by discharge from inpatient: Patient will be able to transfer from bed to stand safely and independently with a pain level less than or equal to 1/10. Patient will be able to ambulate with least restrictive assistive device x150 feet safely and independently. Patient will be able to ascend and descend one flight of stairs safely and independently. Patient's back pain will be manageable so that he is able to return back home and perform all ADLs necessary. Long-Term Goals: To be met following discharge from inpatient: Patient may be seen by outpatient physical therapy if deemed necessary upon time of discharge. TREATMENT PLAN: Patient will be seen B.I.D during the week and one time per day over the weekend as an inpatient to address the above goals and objectives. INITIAL TREATMENT: Treatment today consisted of the initial evaluation. Following treatment the patient was left with call light within reach and bed alarm set. [facility]
--- NOTE | 2018-10-19 15:56 | OT.PROG ---
Progress Note Progress Note: S: pt stated he did have back pain. He reported that he did not have much of an appetite for lunch. O: pt was seen in his room and just finished toilet transfer with nursing. He completed functional transfer downstairs to therapy with use of no assistive device. He completed bed mobility with min A due to the pain. He then received heat to Lower back. while on heat he completed UE exercises with cane 2# in shoulder flex/bench press. He then completed RTB in all planes, BUE to increase strength to assist with postural transitions. He was returned to his room and chose to lie in bed,needing min A. A: pt's o2 was rather low on 3 liters, 85-86, 4 liters would increase to 91-93. He was left in bed when o2 returned 94 in supine. P: continue per pOC.
--- NOTE | 2018-10-19 16:22 | OTI REPORT ---
Thank you for the referral of Drew Patel. He was seen on 10/16/18 for an occupational therapy modified barium swallow study. SUBJECTIVE: The patient is an 83-year-old male who is being seen today secondary to having x-ray exams that look like the patient is experiencing aspiration pneumonia. PAST MEDICAL HISTORY: Past medical history can be found in the patient's medical record. OBJECTIVE FINDINGS: The patient was brought into the fluoroscopy room with Dr. Wells and the occupational therapist. Upon presentation, the patient sat in a lateral view to begin the study. The patient was assessed with thin liquids, mechanical soft food items, and regular food items. During all liquid intake and food textures, the patient demonstrated good lip closure, was able to chew well, had good AP transit, was negative for pocketing, holding, or premature spillage, had good tongue based retraction, and had limited stasis and coating. He did have a slightly delayed swallow trigger. He did demonstrate mild piecemeal deglutition. He was negative for oral nasal regurgitation. He had moderate hyoid/thyroid approximation and hyoid protraction. He had good laryngeal elevation. He was negative for penetration or aspiration. He did have a slight decrease in pharyngeal squeezes. He did demonstrate moderate amounts of vallecular and piriformis pooling; more so on the left side than on the right side. He had residuals of vallecular and piriformis, even after two or three swallows. He had a good UES opening. Further in the study, after the pharyngeal assessment, Dr. Wells was able to identify an esophageal dysmotility disorder. In an anterior view, this is where we found most of the pooling of the vallecular and piriformis. He was assessed in a lateral and anterior view with meat and peaches as well as thin liquids. Even after several bites of food, we turned the patient into a lateral position again to look for any aspiration and he was negative in an upright position. When laying the patient down, Dr. Wells assessed the lower esophageal region, it was found that he does have esophageal dysmotility. ASSESSMENT: The patient is negative for aspiration in the pharyngeal region; however, he does demonstrate some slight pharyngeal weakness and had to do 2-3 swallows per bite in order to clear the piriformis and vallecular area. The patient would benefit from education on esophageal dysmotility and education on compensatory strategies for dysmotility. The patient would benefit from eating smaller meals, cutting up food into small, bite size pieces, to sleep at an angled position, to sit upright for 2-3 hours after food or liquid intake, and to take 2-3 swallows per bolus. INITIAL TREATMENT: Treatment today consisted of the modified barium swallow study only. MTDD
[2018-10-19] MEDS: cefTRIAXone Inj 2 GM in Sodium Chloride 0.9% 100 ML IV SCH (17:09)
--- NOTE | 2018-10-19 17:15 | PT.PROG ---
Progress Note Progress Note: S. Patient stated that he is feeling alright this afternoon. O. Patient ambulated 175 feet to the therapy gym where he had heat to his back then performed heel slides, quad sets, ankle pumps, short arc quads, seated long arc quads, marches, heel toe raises, ball squeezes, clam shells and resisted knee flexion all x 10 bilaterally, Patient performed sit to stands x 10 Patient was left with OT for further therapy. A. Patient tolerated therapy well, he continues to have some pain with exercises, and struggles with weakness, he would continue to benefit from skilled therapy to increase strength, endurance and safety at this time. P. Continue POC.
--- NOTE | 2018-10-19 17:22 | PT.PROG ---
Progress Note Progress Note: S. Patient stated that he is feeling good this morning. O. Patient ambulated 175 feet to the therapy gym where he had heat to his back then performed heel slides, quad sets, ankle pumps, short arc quads, seated long arc quads, marches, heel toe raises, ball squeezes, clam shells and resisted knee flexion all x 10 bilaterally, Patient performed sit to stands x 10 Patient was left with OT for further therapy. A. Patient tolerated therapy well, he continues to have some pain with exercises, and struggles with weakness, he would continue to benefit from skilled therapy to increase strength, endurance and safety at this time. P. Continue POC.
[2018-10-19] MEDS: FINASTERIDE 5 MG TABLET PO SCH (20:12)
[2018-10-19] MEDS: TAMSULOSIN 0.4 MG CAPSULE PO SCH (20:12)
[2018-10-20] MEDS: TIOTROPIUM BROMIDE 18 MCG CAPSULE INH SCH (07:40)
[2018-10-20] MEDS: ALBUTEROL SULFATE 2.5 MG/3 ML NEB PRN (08:21)
--- NOTE | 2018-10-20 09:13 | PDOC(PROG) ---
Interval History: No chest pain still little short of breath Objective : Data - Labs CBC and BMP: 10/19/18 04:09 10/19/18 04:09 Objective : Exam - General General Appearance: Cooperative - Respiratory Respiratory Exam: Decreased Breath Sounds - Cardiovascular Cardiovascular Exam: RRR, No Murmur, No Clicks, No Gallops, No Rubs, PMI Non-Displaced - GI/Abdominal GI/Abdominal Exam: Normal Bowel Sounds, Non Tender, Non Distended, Soft, No Masses, No Hepatomegaly, No Splenomegaly, No Organomegaly - Extremities Extremities Exam: No Clubbing Present, No Edema Present, No Cyanosis Present - Neurological Neurological Exam: Alert, Oriented x 3, No Facial Droop, Speech Intact / Clear Assessment and Plan - Patient Problems (1) Pulmonary embolus Current Visit: Yes Status: Acute Comment: on eliquis Code(s): I26.99 - Other pulmonary embolism without acute cor pulmonale (2) Aspiration pneumonia Current Visit: Yes Status: Acute Comment: Continue IV antibiotics I don't think this is aspiration pneumonia Code(s): J69.0 - Pneumonitis due to inhalation of food and vomit Qualifiers: Aspiration pneumonia type: unspecified Laterality: bilateral Lung location: lower lobe of lung Qualified Code(s): J69.0 - Pneumonitis due to inhalation of food and vomit (3) Acute hypoxemic respiratory failure Current Visit: Yes Status: Acute Comment: Secondary to pneumonia and pulmonary embolus Code(s): J96.01 - Acute respiratory failure with hypoxia (4) Low back pain Current Visit: Yes Status: Acute Code(s): M54.5 - Low back pain Qualifiers: Chronicity: acute Back pain laterality: bilateral Sciatica presence: without sciatica Qualified Code(s): M54.5 - Low back pain (5) Gouty arthropathy Current Visit: Yes Status: Acute Code(s): M10.9 - Gout, unspecified (6) Thrombocytosis Current Visit: Yes Status: Acute Code(s): D47.3 - Essential (hemorrhagic) thrombocythemia
[2018-10-20] MEDS: ASCORBIC ACID Chewable 500 MG TABLET PO SCH (09:43)
[2018-10-20] MEDS: ALLOPURINOL 300 MG TABLET PO SCH (09:43)
[2018-10-20] MEDS: GUAIFENESIN 600 MG TABLET PO SCH ×2 (09:43→20:43)
[2018-10-20] MEDS: Apixaban 5 MG TABLET PO SCH ×2 (09:44→20:44)
[2018-10-20] MEDS: ENOXAPARIN SODIUM 30 MG/0.3 ML SYRINGE SUBCUT SCH (09:44)
--- NOTE | 2018-10-20 09:59 | PT AM DAY ---
Diagnosis : Back Pain/Weakness AM - Physical Therapy S: The patient is still complaining of pain on the left side more than the right. The rib belt seems to help with his pain. O: The patient received an application of moist heat pack x20 minutes including set up to the low back. We worked on ambulating to the department with one liter of oxygen with a walker and stand by assist of one. He performed UBE, sit to stands, light strengthening exercises for uppers and lowers, and NuStep x10 minutes. At the request of the nursing staff, we ambulated to the cafeteria and back to the nursing floor without oxygen. We monitored his oxygen saturation rates, they were into the low 80s without oxygen with activity. A: The patient's balance was better today. P: Continue seeing patient BID during the week and one time per day over the weekend for transfers, ambulation, and range of motion/strengthening exercises. MTDD
--- NOTE | 2018-10-20 10:15 | PT.PROG ---
Progress Note Progress Note: S. Patient stated that he is feeling good this morning. O. Patient ambulated 175 feet to the therapy gym where he had heat to his back then performed heel slides, quad sets, ankle pumps, short arc quads, seated long arc quads, marches, heel toe raises, ball squeezes, clam shells and resisted knee flexion all x 10 bilaterally, Patient performed sit to stands x 10 Patient was left with OT for further therapy. A. Patient tolerated therapy fair. He continues to struggle with keeping his O2 saturation above 90 increase of o2 to 4L during exercise. he continues to have some pain with exercises, and struggles with weakness, he would continue to benefit from skilled therapy to increase strength, endurance and safety at this time. P. Continue POC.
--- NOTE | 2018-10-20 11:14 | OT.PROG ---
Progress Note Progress Note: S: pt stated he did not want to use his back brace today. He stated that it made his back hurt worse. O: pt was seen in his room and completed bed mobility Ind. He completed functional transfer downstairs entire way with no breaks. He completed obstacle course with boxes, hurdles and air ex to improve his functional mobility x8. He then participated in dynamic sitting balance activity for up to 5 min which required a lot of Ue movement. He also completed 3-way bungees x10 ea before returning to his room. He agreed to sit in chair with alarm on and call light within reach. A: pt's o2 on 3 liters remained somewhere between 85-88 and on 5 liters was any where from 88-91 on 4 liters. His balance is good throughout all of his activities as he uses no assistive device. P: continue per POC.
[2018-10-20] MEDS: cefTRIAXone Inj 2 GM in Sodium Chloride 0.9% 100 ML IV SCH (16:23)
--- NOTE | 2018-10-20 16:32 | PT.PROG ---
Progress Note Progress Note: S. Patient stated that he is feeling alright this afternoon. O. Patient ambulated 175 feet to the therapy gym where he had heat to his back then performed heel slides, quad sets, ankle pumps, short arc quads, seated long arc quads, marches, heel toe raises, ball squeezes, clam shells and resisted knee flexion all x 10 bilaterally, Patient performed sit to stands x 10 Patient was left with OT for further therapy. A. Patient tolerated therapy well, he continues to struggle to keep his O2 sats above 90, and struggles with weakness, he would continue to benefit from skilled therapy to increase strength, endurance and safety at this time. P. Continue POC.
--- NOTE | 2018-10-20 16:50 | OT.PROG ---
Progress Note Progress Note: S: pt reported he still does not have much of an appetite. He doesn't like his back brace, he stated he thinks it made his back hurt worse. O: pt was seen in his room and completed bed mobility Ind. He completed functional transfer entire way to therapy with no breaks. He completed 8 min on Ue bike to increase activity tolerance. He then completed transfer Ind to mat table. He completed 0#/4# sit to stands x10. He then completed 3 lb cane bicep curl, shoulder flex and hor abd/add with BUE's. He then participated with PT and they returned him to her room. A: pt participated well as his o2 remained low 90's with 4 liters. P: Continue per POC.
[2018-10-20] MEDS: TAMSULOSIN 0.4 MG CAPSULE PO SCH (20:43)
[2018-10-20] MEDS: FINASTERIDE 5 MG TABLET PO SCH (20:44)
[2018-10-20] MEDS: oxyCODONE-ACETAMINOPHEN 5-325 TAB PO PRN (20:45)
[2018-10-21 05:58] LABS: Hematocrit [HCT] 31.7 % (42.0-52.0); Hemoglobin [HGB] 9.8 g/dL (14.0-18.0); MEAN CORPUSCULAR HEMOGLOBIN 28.5 PG (27-31); MEAN CORPUSCULAR HGB CONC 30.9 g/dL (33-37); MEAN CORPUSCULAR VOLUME 92.2 FL (80-90); MEAN PLATELET VOLUME 9.9 FL (7.4-12.2); RED BLOOD COUNT 3.44 10^6/uL (4.70-6.10)
[2018-10-21 06:15] LABS: PLATELET MORPHOLOGY COMMENT NORMAL MORPHOLOGY (NORM); RBC MORPHOLOGY COMMENT NORMAL MORPHOLOGY (NORM); WBC MORPHOLOGY COMMENT NORMAL MORPHOLOGY (NORM)
[2018-10-21 06:16] LABS: BAND NEUTROPHILS % 0 % (0-10); BASOPHILS % (MANUAL) 1 % (0-1); EOSINOPHILS % (MANUAL) 0 % (0-8); MONOCYTES % (MANUAL) 4 % (0-12); NEUTROPHILS % (MANUAL) 66 % (50-80)
[2018-10-21 06:19] LABS: BLOOD UREA NITROGEN 17 mg/dL (7-22); BUN/CREATININE RATIO 15.45 (6-20); SERUM ALBUMIN 2.7 g/dL (3.5-4.8)
[2018-10-21] MEDS: ALBUTEROL SULFATE 2.5 MG/3 ML NEB PRN (06:40)
[2018-10-21] MEDS: TIOTROPIUM BROMIDE 18 MCG CAPSULE INH SCH (06:41)
[2018-10-21] MEDS: GUAIFENESIN 600 MG TABLET PO SCH ×2 (08:11→20:20)
[2018-10-21] MEDS: ENOXAPARIN SODIUM 30 MG/0.3 ML SYRINGE SUBCUT SCH (08:11)
[2018-10-21] MEDS: ALLOPURINOL 300 MG TABLET PO SCH (08:12)
[2018-10-21] MEDS: Apixaban 5 MG TABLET PO SCH ×2 (08:12→20:20)
[2018-10-21] MEDS: ASCORBIC ACID Chewable 500 MG TABLET PO SCH (08:12)
--- NOTE | 2018-10-21 11:30 | PT.PROG ---
Progress Note Progress Note: S. Patient stated that he is feeling alright this morning, he stated he would like to go home. O. Patient ambulated 175 feet to the therapy gym where he had heat to his hip then performed heel slides, quad sets, ankle pumps, short arc quads, seated marches, ball squeezes, clam shells all x 10 bilaterally. Patient performed box step ups with #3 box x 10. Patient ambulated 175 feet back to his room where he was left with alarm and call light. A. Patient tolerated therapy well, he continues to struggle to keep his o2 sats above 90 during exercise and requires frequent rest breaks to recover his o2. He would continue to benefit from skilled therapy to increase strength, endurance and safety at this time. P. Continue POC.
--- NOTE | 2018-10-21 14:31 | OT.PROG ---
Progress Note Progress Note: S: pt reported that he hopes he gets to go home today. O: pt was seen in therapy today after being transferred down to therapy by PT. He completed BUE cane 2# x20, 2# ball in shoulder flex and stairs up/down x6 Ind. He was returned to his room by PT and left upright in chair with call light within reach. A: pt participated well, o2 was a little better this morning yet still declines with activity. P: continue per POC.
--- NOTE | 2018-10-21 14:36 | OT.PROG ---
Progress Note Progress Note: S: pt reported that he still thinks he may go home today. He is awaiting word from his primary Dr in [place]. O: pt was seen in his room and completed doffing/donning of LE's garments Ind. He compeleted functional transfer entire way downstairs with no breaks. He participated in functional box/hurdles to increase activity tolerance during movement. He then completed dynamic standing/sitting balance activity tapping balloon for 3min x2 and 2 min x1. He completed x10 sit to stands with 4# Ind. A: His o2 remained steady at 3 liters today as he was anywhere from 92-95 during activity. After completed quite long walk with PT he was returned to his room where o2 was 95 on 2 liters and after recovery his liters were decreased to 1. Pt's overall balance is very good throughout postural transitions and functional transfers. He may need to be on o2 once d/c home. P: continue per pOC.
--- NOTE | 2018-10-21 16:40 | PT.PROG ---
Progress Note Progress Note: S. Patient stated that he is feeling alright this afternoon. O. Patient ambulated 175 feet to the therapy gym where he used the nu-step x 8 minutes, then performed box step ups x 10 with #4 box, then performed an obstacle course with 2 6 inch hurdles, 1 8 inch waldemar, a #4 box and 2 airex pads, to challenge his balance. He ambulated 500 feet around the hospital and back to his room where he was left with alarm and call light. A. Patient tolerated therapy well, he continues to struggle to keep his o2 sats above 90, he was able to perform all exercises with no increase in pain or problems however. He would continue to benefit from skilled therapy to increase strength and endurance at this time. P. Continue POC.
--- NOTE | 2018-10-21 16:49 | PDOC(PROG) ---
Date of Service: 10/21/18 Time of Service: 16:44 Interval History: Patient seen and evaluated earlier. He sees the [facility] in [place] for his medical care. I have no way to transition the patient home safely until he can discuss with the [facility] his medications. I placed a call and I'm waiting for a call back. He is breathing much better. He would like to go home if possible. Denies chest pain. Denies nausea and vomiting Objective : Data - Labs CBC and BMP: 10/21/18 05:30 10/21/18 05:30 Objective : Exam - General General Appearance: No Acute Distress, Cooperative Additional General Exam Details: Vital Signs - Last Taken Temperature 97.8 F 10/21/18 13:00 Pulse Rate 84 10/21/18 13:00 Respiratory Rate 18 10/21/18 13:00 Blood Pressure 141/69 10/21/18 13:00 Pulse Ox 94 10/21/18 15:00 - Head Head Exam: Normal Inspection, Normocephalic, Atraumatic - Eye Eye Exam: No Scleral Icterus - ENT ENT Exam: Mucous Membranes Moist - Respiratory Respiratory Exam: Breathing Non Labored, Decreased Breath Sounds (In the bases bilaterally) - Cardiovascular Cardiovascular Exam: RRR, No Murmur, No Clicks, No Gallops, No Rubs, No JVD - GI/Abdominal GI/Abdominal Exam: Normal Bowel Sounds, Non Tender, Non Distended, Soft - Extremities Extremities Exam: No Clubbing Present, No Edema Present, No Cyanosis Present - Neurological Neurological Exam: Alert, Oriented x 3, No Facial Droop, Speech Intact / Clear, Moves All Extremities Equally - Psychiatric Psychiatric Exam: Normal Affect, Normal Mood Assessment and Plan - Patient Problems (1) Pulmonary embolus Current Visit: Yes Status: Acute Code(s): I26.99 - Other pulmonary embolism without acute cor pulmonale Qualifiers: Pulmonary embolism type: unspecified Chronicity: acute Acute cor pulmonale presence: without acute cor pulmonale Qualified Code(s): I26.99 - Other pulmonary embolism without acute cor pulmonale (2) Depressed left ventricular ejection fraction Current Visit: Yes Status: Acute Code(s): R09.89 - Other specified symptoms and signs involving the circulatory and respiratory systems (3) Aspiration pneumonia Current Visit: Yes Status: Acute Code(s): J69.0 - Pneumonitis due to inhalation of food and vomit Qualifiers: Aspiration pneumonia type: unspecified Laterality: bilateral Lung location: lower lobe of lung Qualified Code(s): J69.0 - Pneumonitis due to inhalation of food and vomit (4) Acute hypoxemic respiratory failure Current Visit: Yes Status: Acute Code(s): J96.01 - Acute respiratory failure with hypoxia (5) Low back pain Current Visit: Yes Status: Acute Code(s): M54.5 - Low back pain Qualifiers: Chronicity: acute Back pain laterality: bilateral Sciatica presence: without sciatica Qualified Code(s): M54.5 - Low back pain (6) Gouty arthropathy Current Visit: Yes Status: Acute Code(s): M10.9 - Gout, unspecified (7) Thrombocytosis Current Visit: Yes Status: Acute Code(s): D47.3 - Essential (hemorrhagic) thrombocythemia - Assessment / Plan Additional Assessment/Plan Details: Given the echocardiogram finding, findings of pulmonary emboli, the patient probably needs a stress test at some point on his heart. However as [facility], he might be able to wait for this to do this as an outpatient as there is no signs or symptoms of angina at this time. Still awaiting callback from [facility] regarding discussion to transition the patient home. He will need to go on oxygen and is a use their own oxygen vendor and this will need to be verified through them. Continue Eliquis, and given age probably continue it indefinitely for pulmonary emboli At this point, stop Zithromax. Continue Rocephin for now. Today would be day 7 of antibiotics I will stop tomorrow. Should be reimaged, but this will need to be arranged through the [facility]. I discussed with patient twice that I need to discuss with the clinic there to be able to develop a good transition of care back home. Definitely not safe to do so otherwise.
[2018-10-21] MEDS: cefTRIAXone Inj 2 GM in Sodium Chloride 0.9% 100 ML IV SCH (16:50)
[2018-10-21] MEDS: TAMSULOSIN 0.4 MG CAPSULE PO SCH (20:20)
[2018-10-21] MEDS: FINASTERIDE 5 MG TABLET PO SCH (20:20)
[2018-10-22] MEDS: TIOTROPIUM BROMIDE 18 MCG CAPSULE INH SCH (06:36)
[2018-10-22] MEDS: ENOXAPARIN SODIUM 30 MG/0.3 ML SYRINGE SUBCUT SCH (09:12)
[2018-10-22] MEDS: ALLOPURINOL 300 MG TABLET PO SCH (09:12)
[2018-10-22] MEDS: ASCORBIC ACID Chewable 500 MG TABLET PO SCH (09:13)
[2018-10-22] MEDS: Apixaban 5 MG TABLET PO SCH (09:13)
[2018-10-22] MEDS: GUAIFENESIN 600 MG TABLET PO SCH (09:13)
--- NOTE | 2018-10-22 11:24 | PT.PROG ---
Progress Note Progress Note: S. Patient stated that he is feeling good this morning. O. Patient ambulated 175 feet to the therapy gym where he used the nu-step x 8 minutes, then performed box step ups x 10 with #4 box, then performed an obstacle course with 2 6 inch hurdles, 1 8 inch waldemar, a #4 box and 2 airex pads, to challenge his balance. He ambulated 450 feet around the hospital and back to his room where he was left with alarm and call light. A. Patient tolerated therapy well, he was able to keep his o2 sats above 90, he was able to perform all exercises with no increase in pain or problems however. Patient has met all goals at this time and would continue to benefit from Outpatient therapy to increase strength and endurance at this time. P. Continue POC.
--- NOTE | 2018-10-22 11:43 | OT.PROG ---
Progress Note Progress Note: S: pt reported that he just wants to go home. He thinks he gets to go home now without o2. O: pt was seen in his room and completed functional transfer entire way to therapy with no breaks. He completed 8 min on UE bike to increase activity tolerance. He completed transfer to mat table where he completed hiro's, rows, shoulder ext, bicep flex all x20 with BUE's. He then completed IROT, tricep ext with GTB x20. He completed sit to stands with 6#. He was returned to his room and left in chair with alarm on and call light within reach. A: pt's o2 was improved today as he was on 1 liters and remained 91-93 during activity. P: continue per pOC/prepare pt for d/c.
[2018-10-22 15:08] VITALS: O2SAT 92
--- NOTE | 2018-10-22 15:40 | DCSUMMARY ---
Hospitalization Summary Admit Date: 10/15/2018 Discharge Date: 10/22/18 Primary Diagnosis:: acute hypoxemic respiratory failure, resolved Hospital Course: This very pleasant 83-year-old male who does not have a lot of significant medical history outside of COPD that's well-controlled with no oxygen requirement at home, who came in with oxygen requirement, fevers, and was found to have aspiration pneumonia and acute hypoxemic respiratory failure. He eventually developed bilateral pulmonary emboli despite prophylactic Lovenox. He was treated for that with Eliquis. We had some trouble making sure that he could have this medication prior to disc harge, and we were able to arrange for 2 weeks of samples, as well as a prescription card for one free month of Eliquis which has been sent in to [facility] pharmacy. He completed antibiotic therapy for his pneumonia, and antibiotics and been discontinued. I asked the patient to get an x-ray done in 6 weeks to reevaluate. The patient had an echocardiogram that did not show any evidence of right sided congestive heart failure, but it did show a mildly depressed ejection fraction. I told the patient he would probably benefit from doing further workup and [facility] with [facility] including a possible stress test. I will defer that to him and his [facility] provider. The patient denies any chest pain, shortness breath, nausea or vomiting today. He would like to go home. Assessment and Plan: 1. As per discharge assessments noted 2. Disposition: Patient is discharged home. 3. Condition on discharge, stable and improved. 4. Diet: regular diet 5. Activities: resume normal activities 6. Follow-Up: 1. [facility] [place] within one week. Note I spoke to their provider directly, Dr. Marmolejo, and so he is aware of the patient's situation. 7. Medications at the Time of Discharge: Home Medications Medication Instructions Recorded Confirmed Type Albuterol Sulfate [Proventil Hfa] 1 puff INH Q4-6H puff 03/14/15 10/15/18 History Allopurinol 1 tab PO DAILY tab 03/14/15 10/15/18 History Finasteride 5 mg PO DAILY tab 03/14/15 10/15/18 History Tamsulosin HCl 1 cap PO DAILY cap 03/14/15 10/15/18 History Tiotropium Walker [Spiriva] 1 puff INH DAILY inh 03/14/15 10/15/18 History Apixaban [Eliquis] 5 mg PO BID #60 tab 10/21/18 Rx 8. Time, care, counseling and coordination of care for this discharge is greater than 30 minutes. Exam - Vitals Vital Signs: Vital Signs Temperature 97.7 F Temperature Source Tympanic Pulse Rate [Pulse Oximeter 66 Right] Pulse Rate 54 Respiratory Rate 16 Blood Pressure [Right Arm] 145/63 Blood Pressure [Left Arm] 126/70 Pulse Ox 92 Oxygen Flow Rate 1 Oxygen Delivery Method Nasal Cannula Height 5 ft 11 in Weight 169 lb Data Peritnent Studies: 10/15/18 10/15/18 10/15/18 12:02 12:08 12:08 WBC Hgb Hct Plt Count VBG pH 7.41 VBG pCO2 37 L VBG HCO3 24 Sodium Potassium Chloride Carbon Dioxide Anion Gap BUN Creatinine BUN/Creatinine Ratio Glucose Calculated Osmolality Calcium Magnesium 2.4 Total Bilirubin 0.3 AST 87 H ALT 82 H Alkaline Phosphatase 111 CK-MB (CK-2) 0.91 Troponin I Handheld C-Reactive Protein 7.8 H NT-Pro-B Natriuret Pep 974 H Total Protein 7.6 Albumin 3.5 Globulin 4.0 Albumin/Globulin Ratio 10/15/18 10/17/18 10/18/18 12:08 04:20 04:20 WBC 13.02 H 12.25 H Hgb Hct Plt Count VBG pH VBG pCO2 VBG HCO3 Sodium Potassium Chloride Carbon Dioxide Anion Gap BUN Creatinine BUN/Creatinine Ratio Glucose Calculated Osmolality Calcium Magnesium Total Bilirubin AST ALT Alkaline Phosphatase CK-MB (CK-2) Troponin I Handheld 0.010 C-Reactive Protein NT-Pro-B Natriuret Pep Total Protein Albumin Globulin Albumin/Globulin Ratio 10/19/18 10/21/18 10/21/18 04:09 05:30 05:30 WBC 17.37 H 6.20 Hgb 9.8 L Hct 31.7 L Plt Count 607 H VBG pH VBG pCO2 VBG HCO3 Sodium 136 Potassium 4.5 Chloride 104 Carbon Dioxide 30 Anion Gap 2 L BUN 17 Creatinine 1.1 BUN/Creatinine Ratio 15.45 Glucose 84 Calculated Osmolality 282.0 Calcium 8.5 L Magnesium Total Bilirubin 0.1 L AST 40 ALT 31 Alkaline Phosphatase 76 CK-MB (CK-2) Troponin I Handheld C-Reactive Protein NT-Pro-B Natriuret Pep Total Protein 5.8 L Albumin 2.7 L Globulin 3.1 Albumin/Globulin Ratio 0.80 L Procedures: [address] [facility] [place] [address] PH: DD: [phone] FAX: [phone] ~DIAGNOSTIC IMAGING REPORT~ Patient: Lizzeth Burgos : 1935 Sex: M Age: 83 Exam Name: CT CTA Chest Non-Coronary [facility] Exam Date: 10/19/18 Report # : [id number] CPT Code: 41846 EMR/MR #: [id number] Ordering: MARK ANTHONY BOYLE Admiting: GULSHAN MITTAL DO Primary: Tanner Fuentes Jr., MD. Attending: GULSHAN MITTAL DO Signed CT ANGIOGRAM OF THE CHEST, 10/19/2018 9:23 AM : Clinical History: Shortness of breath. Previous Exam: 10/15/2018. Technique: Scans from base of neck to lung bases with IV contrast. Bolus tracking protocol was used for timing the injection. Non-MIPS and MIPS sagittal/coronal images generated. IV Contrast: 65 mL of Isovue 370. Base of Neck: Normal. Nodes: Normal axillary, supraclavicular, mediastinal, and hilar lymph nodes. Heart: Normal. Calcifications are present in the left mainstem, LAD, right coronary artery the PDA, and in the proximal portion of the left circumflex artery. Aorta: Normal thoracic aorta. No aneurysm or dissection. Pulmonary Arteries: Since the previous exam, the patient has developed pulmonary emboli bilaterally to upper lobe branches that previously were free of clot. Lungs: Bilateral lower lobe pneumonia have become more consolidated. Flow is still visualized to these segments. Effusion(s): None. READIN. Interval development of blood clots to the branches of the right and left upper lobes. These vessels previously were free of clots. 2. Progressive consolidation of bilateral lower lobe pneumonia. There is compensatory hyperinflation of both upper lobes secondary to the lower lobe atelectasis and pneumonia. 3. Bullous emphysema. Dictated By: 10/19/18 1229 EVERT YOUNG MD. Signed By: 10/19/18 1239 EVERT YOUNG MD. [address] [facility] [place] [address] PH: DD: [phone] FAX: [phone] ~DIAGNOSTIC IMAGING REPORT~ Patient: Lizzeth Burgos : 1935 Sex: M Age: 83 Exam Name: XR ESOPHAGRAM Exam Date: 10/16/18 Report # : [id number] CPT Code: 40554 EMR/MR #: [id number] Ordering: GULSHAN MITTAL Admiting: GULSHAN MITTAL DO Primary: Tanner Fuentes Jr., MD. Attending: GULSHAN MITTAL DO Signed MODIFIED ESOPHAGRAM, 10/16/2018 8:00 AM : Clinical History: Aspiration pneumonia. Previous Exam: None at this facility. Time Out: A "time out" session was performed to verify the patient's name and date of prior to performing this procedure. Technique: Examination is performed in conjunction with Occupational Therapy to evaluate the patient's swallowing function. Different texture grades of barium impregnated substances were offered to the patient, ranging from thin liquids to thick liquids to solids. Please see the occupational therapist's report for more specific details. Deglutition: Deglutition is normal and the esophagus strips well in the upright position. With the patient supine, there is almost no motility in the esophagus. Even with the patient attempting to swallow, the barium remains in the esophagus. Aspiration: No aspiration noted while swallowing. Pooling: No pooling of material in the pyriform sinuses. Diverticulum: There is no Zenker's diverticulum. Esophagus: Spot films of the esophagus showed tertiary contractions without evidence of esophagitis. A small hiatal hernia is present. Reflux: No reflux is demonstrated either spontaneously or with the water siphon test. READIN. The modified esophagram shows no evidence of aspiration or reflux. Using different textures of barium impregnated materials elicited no aspiration. However, with the patient supine, there was almost no esophageal motility even when the patient attempted to swallow. 2. Bilateral lower lobe infiltrates are present, more severe on the left side than the right, indicative of aspiration pneumonia. Dictated By: 10/16/18 1444 EVERT YOUNG MD. Signed By: 10/16/18 1557 EVERT YOUNG MD. [address] [facility] [place] [address] PH: DD: [phone] FAX: [phone] ~DIAGNOSTIC IMAGING REPORT~ Patient: LIZZETH BURGOS : 1935 Sex: M Age: 83 Exam Name: CT CTA Chest Non-Coronary [facility] Exam Date: 10/15/18 Report # : [id number] CPT Code: 39454 EMR/MR #: [id number] Ordering: Raúl Mcgee Admiting: GULSHAN MITTAL DO Primary: Tanner Fuentes Jr., MD. Attending: GULSHAN MITTAL DO Signed CT ANGIOGRAM OF THE CHEST, 10/15/2018 1:52 PM : Clinical History: Shortness of breath. Previous Exam: None at this facility. Technique: Scans from base of neck to lung bases with IV contrast. Bolus tracking protocol was used for timing the injection. Non-MIPS and MIPS sagittal/coronal images generated. IV Contrast: 65 mL of Isovue 300. Base of Neck: Normal. The left thyroid lobe is either very small or surgically absent. Nodes: Normal axillary, supraclavicular, mediastinal, and hilar lymph nodes. Heart: Normal. No coronary artery calcifications. Aorta: Normal thoracic aorta. No aneurysm or dissection. Pulmonary Arteries: Normal. No pulmonary emboli or infarcts; mild pulmonary hypertension. Lungs: Bilateral lower lobe infiltrates with bronchiectasis. This indicates this is chronic aspiration pneumonia. Small blebs are scattered throughout both lungs indicating bullous emphysema. Mild increased Jana A and Jana B lines indicating mild chronic interstitial pulmonary fibrosis. Calcified plaques along the left costophrenic angle laterally probably related to the previous lung biopsy. Effusion(s): None. Nodules: There is a 3 mm noncalcified nodule in the anterior segment of the right upper lobe. 3 mm calcified nodule in the left upper lobe. Bony Structures: Normal visualized portions of ribs, sternum, scapulae, clavicles, and shoulders. Normal visualized portions of thoracic spine. Limited Upper Abdomen: Normal adrenal glands and limited views of the spleen spleen. Normal limited views of liver and pancreas. READIN. Normal CTA of the chest. There are no pulmonary emboli or pulmonary infarcts. There is mild pulmonary adrenal hypertension. 2. Bilateral lower lobe aspiration pneumonia with extensive bronchiectasis. 3. Centrilobular emphysema with bullae and mild chronic interstitial pulmonary fibrosis. 4. Noncalcified 3 mm nodule in the anterior segment of the right upper lobe. Based on the 2017 Fleischner Society guidelines for incidental nodules noted at CT scanning, a followup CT chest scan without IV contrast is(s) and 12 months. Dictated By: 10/15/18 4233 EVERT YOUNG MD. Signed By: 10/15/18 1638 EVERT YOUNG MD. [address] [facility] [place] [address] PH: DD: [phone] FAX: [phone] ~DIAGNOSTIC IMAGING REPORT~ Patient: LIZZETH BURGOS : 1935 Sex: M Age: 83 Exam Name: XR L-SPINE MIN 4 VW Exam Date: 10/15/18 Report # : [id number] CPT Code: 99847 EMR/MR #: [id number] Ordering: Raúl Mcgee Admiting: Primary: Tanner Fuentes Jr., MD. Attending: Signed LUMBAR SPINE SERIES, 10/15/2018 11:41 AM: Clinical History: Pain. Status post fall. Previous Exam: None at this facility. Views: 5 routine views. Vertebral Bodies: Normal height and size. No compression fractures. Disc Spaces: Severe disc space narrowing at every level except L3-4. Alignment: Grade 1 spondylolisthesis at L4-5 with a left L4 pars defect. Pedicles: Normal. Apophyseal Joints: Arthritic changes are present in the apophyseal joints bilaterally from L1-2 through L5-S1 but most severely between L3-4 and L5-S1. SI Joints: Normal. Bone Density: Osteoporotic. Additional Findings: Bilateral lower lobe aspiration pneumonia is evident, more prominent on the left side than the right. Readin. No acute fracture or dislocation. 2. Chronic disc space narrowing at every level except L3-4. Grade 1 spondylolisthesis at L4-5 with a left L4 pars defect. 3. Severe arthritic changes in the apophyseal joints bilaterally especially between L3-4 and L5-S1. 4. Bilateral aspiration pneumonia, more severe on the left side than the right. Dictated By: 10/15/18 1441 EVERT YOUNG MD. Signed By: 10/15/18 144Tim YOUNG MD. [address] [facility] [place] [address] PH: DD: [phone] FAX: [phone] ~DIAGNOSTIC IMAGING REPORT~ - Patient: LIZZETH BURGOS : 1935 Sex: M Age: 83 Exam Name: XR CXR 2VW PA/LAT Exam Date: 10/15/18 Report # : [id number] CPT Code: 66419 EMR/MR #: [id number] Ordering: Raúl Mcgee Admiting: Primary: Tanner Fuentes Jr., MD. Attending: Signed PA /LATERAL CHEST, 10/15/2018 11:41 AM : Clinical History: Cough. Shortness of breath. Previous Exam: 03/09/2015. Soft Tissues: No acute soft tissue abnormality. Bones: Normal. Heart: Normal heart. Lungs: The patient has had a previous left lung biopsy. There are bilateral lower lobe infiltrates in a pattern indicative of aspiration pneumonia. It is more pronounced on the left side than the right and this was also evident on the prior exam. There is centrilobular emphysema. Effusion(s): None. Mediastinum: Pulmonary arterial hypertension. Nodules: No pulmonary nodules. Readin. Bilateral lower lobe aspiration pneumonia. The left side is more involved than the right. 2. Centrilobular emphysema with pulmonary arterial hypertension. Dictated By: 10/15/18 1438 EVERT YOUNG MD. Signed By: 10/15/18 1444 EVERT YOUNG MD. Patient Problems - Patient Problem List (1) Acute hypoxemic respiratory failure Current Visit: Yes Status: Acute Code(s): J96.01 - Acute respiratory failure with hypoxia Category: Medical (2) Pulmonary embolus Current Visit: Yes Status: Acute Code(s): I26.99 - Other pulmonary embolism without acute cor pulmonale Qualifiers: Pulmonary embolism type: unspecified Chronicity: acute Acute cor pulmonale presence: without acute cor pulmonale Qualified Code(s): I26.99 - Other pulmonary embolism without acute cor pulmonale Category: Medical (3) Depressed left ventricular ejection fraction Current Visit: Yes Status: Acute Code(s): R09.89 - Other specified symptoms and signs involving the circulatory and respiratory systems Category: Medical (4) Aspiration pneumonia Current Visit: Yes Status: Acute Code(s): J69.0 - Pneumonitis due to inhalation of food and vomit Qualifiers: Aspiration pneumonia type: unspecified Laterality: bilateral Lung location: lower lobe of lung Qualified Code(s): J69.0 - Pneumonitis due to inhalation of food and vomit Category: Medical (5) Low back pain Current Visit: Yes Status: Acute Code(s): M54.5 - Low back pain Qualifiers: Chronicity: acute Back pain laterality: bilateral Sciatica presence: without sciatica Qualified Code(s): M54.5 - Low back pain Category: Medical (6) Gouty arthropathy Current Visit: Yes Status: Acute Code(s): M10.9 - Gout, unspecified Category: Medical (7) Thrombocytosis Current Visit: Yes Status: Acute Code(s): D47.3 - Essential (hemorrhagic) thrombocythemia Category: Medical
[2018-10-22 15:42] VITALS: BP 144/79; RESP 18; TEMP 97.3
== END 2018-10-22 16:30 | disposition home or self-care (01) | DRG 177 ==
LOC: ER 11:27 → MED/SURG 15:35
PROVIDERS: ADMIT Family Medicine; ATTEND Family Medicine